=== PATIENT | male | born 1960 | race Caucasian/White ===

== ENCOUNTER 2022-08-08 10:19 | Outpatient (CLI) | payer BC, SELFPAY ==
[2022-08-09 16:48] LABS: Chloride* 106 mmol/L (96-114)
[2022-08-09 16:49] LABS: Albumin* 4.6 g/dL (3.3-5.0); Sodium* 140 mmol/L (135-149)
[2022-08-09 16:50] LABS: Potassium* 3.9 mmol/L (3.6-5.1)
[2022-08-09 16:51] LABS: Cholesterol* 188 mg/dL (90-199)
[2022-08-09 16:52] LABS: Alanine Aminotransferase* 39 U/L (4-50); Alkaline Phosphatase* 44 U/L (40-150); Aspartate Amino Transferase* 30 U/L (12-35); Bilirubin Total* 0.7 mg/dL (0.1-1.5); Blood Urea Nitrogen* 15 mg/dL (7-30); Carbon Dioxide* 25 mmol/L (20-32); Creatinine* 0.8 mg/dL (0.5-1.5); Estimated Glomerular Filt Rate 101 ml/min; Glucose* 123 mg/dL (60-115); Triglycerides* 178 mg/dL (40-149)
[2022-08-09 16:53] LABS: Calcium* 9.6 mg/dL (8.4-10.6); HDL Cholesterol* 54 mg/dL (>=40); LDL Cholesterol Calculated 98 mg/dL (<100)
[2022-08-09 17:23] LABS: PSA Screen* 3.91 ng/mL (0.10-4.00)
== END 2022-08-08 10:20 | disposition home or self-care (01) ==
PROVIDERS: PCP Family Medicine; Visit Provider Physician Assistant Medical
DX: Z00.00 Encounter for general adult medical examination without abnormal findings (principal); E78.5 Hyperlipidemia, unspecified; I10 Essential (primary) hypertension; N40.0 Benign prostatic hyperplasia without lower urinary tract symptoms; R73.03 Prediabetes; Z12.5 Encounter for screening for malignant neoplasm of prostate
CPT/HCPCS: 80053; 80061; 84153

== ENCOUNTER 2022-09-06 08:51 | Outpatient (CLI) | payer BC, SELFPAY | END 2022-09-06 08:52 | disposition home or self-care (01) | PROVIDERS: PCP Physician Assistant Medical; Visit Provider Surgery | DX: Z12.11 Encounter for screening for malignant neoplasm of colon (principal); K63.5 Polyp of colon; K64.4 Residual hemorrhoidal skin tags | CPT/HCPCS: 45385; 88305; J1200; J2250; J3010 ==

== ENCOUNTER 2023-01-10 08:05 | Outpatient (CLI) | payer BC, SELFPAY | END 2023-01-10 08:06 | disposition home or self-care (01) | LOC: NFLDREF 01-11 14:09 | PROVIDERS: PCP Physician Assistant Medical; Referring Provider Physician Assistant Medical; Visit Provider Physician Assistant Medical | DX: R30.0 Dysuria (principal); N39.0 Urinary tract infection, site not specified; N30.00 Acute cystitis without hematuria | CPT/HCPCS: 87086; 87186 ==

== ENCOUNTER 2023-02-28 09:30 | Outpatient (CLI) | payer BC, SELFPAY | END 2023-02-28 09:31 | disposition home or self-care (01) | PROVIDERS: PCP Physician Assistant Medical; Visit Provider Family Medicine | DX: Z01.818 Encounter for other preprocedural examination (principal); E04.1 Nontoxic single thyroid nodule; E78.5 Hyperlipidemia, unspecified; I10 Essential (primary) hypertension; R73.03 Prediabetes; R53.83 Other fatigue; L73.9 Follicular disorder, unspecified | CPT/HCPCS: 80053; 80061; 82043; 82570; 84443; 87070 ==

== ENCOUNTER 2023-04-25 13:27 | Outpatient (CLI) | payer BC, SELFPAY | END 2023-04-25 13:28 | disposition home or self-care (01) | LOC: FRMREF 13:27 | PROVIDERS: PCP Family Medicine; Visit Provider Family Medicine | DX: Z01.818 Encounter for other preprocedural examination (principal) | CPT/HCPCS: 80048 ==

== ENCOUNTER 2024-01-14 10:39 | Outpatient (CLI) | payer BC, SELFPAY | END 2024-01-14 10:40 | disposition home or self-care (01) | PROVIDERS: PCP Family Medicine; Visit Provider Family Medicine | DX: I10 Essential (primary) hypertension (principal); E78.5 Hyperlipidemia, unspecified; R73.03 Prediabetes; E04.1 Nontoxic single thyroid nodule; N40.0 Benign prostatic hyperplasia without lower urinary tract symptoms; R07.9 Chest pain, unspecified | CPT/HCPCS: 80053; 80061; G0103 ==

== ENCOUNTER 2024-01-21 14:35 | Outpatient (CLI) | payer BC, SELFPAY ==
--- NOTE | 2024-01-21 15:50 | P.STN_ITS ---
Stress Test Note Date Date of test: 01/21/24 Providers Primary care provider: David Olivarez Stress test physician: Leno Arana Stress Test Note Stress test ordered: Stress Echo Indication for test: Chest pain Results discussion: 64-year-old gentleman presents for the above test with the above indications after discussing the risks benefits and side effects he would like to proceed. Pretest EKG shows normal sinus rhythm with a ventricular rate of 85, blood pressure 137/84. Poor R-wave progression across the precordial leads is noted. Q-waves are noted inferiorly. ST wave abnormalities a Flattening are noted throughout the precordium, standard Luis protocol is employed over a time course of 10 minutes 2nd and achieved a metabolic: 11.5 Mets his maximum heart was 163 which is 121% of the target ST wave depression of 2 mm is noted laterally from be for through V6 and inferiorly in leads 2 and AVF. He also had chest pain, the came on approximate 9 minutes. And resolved in recovery. Impression: Positive stress stress with electrographic changes of inferior lateral. Subjec tively positive with chest pain with resolution. Follow up suggested: Patient recovered normally was pain free before discharge. Await echo images these will be read by Cardiology but clinical correlation will this will be needed. Given the high workload, and resulted chest pain with changes, high likelihood of stable angina. Patient will continue on his pre testing medications. He is given advice, if he has chest pain that does not resolve with stopping exercise, then he needs to come into the emergency room.
[2024-01-21 17:03] VITALS: BP 148/91; PULSE 109
== END 2024-01-21 14:36 | disposition home or self-care (01) ==
LOC: STRESS 14:35
PROVIDERS: PCP Family Medicine; Visit Provider Family Medicine
DX: R07.9 Chest pain, unspecified (principal); R93.1 Abnormal findings on diagnostic imaging of heart and coronary circulation
CPT/HCPCS: 93016; 93325; 93351

== ENCOUNTER 2024-06-23 11:51 | Outpatient (CLI) | payer BC, SELFPAY | END 2024-06-23 11:52 | disposition home or self-care (01) | LOC: LKVREF 11:57 | PROVIDERS: PCP Family Medicine; Visit Provider Family Medicine | DX: N40.0 Benign prostatic hyperplasia without lower urinary tract symptoms (principal); Z12.5 Encounter for screening for malignant neoplasm of prostate | CPT/HCPCS: 84153; 84154 ==

== ENCOUNTER 2024-08-27 11:33 | Outpatient (CLI) | payer BC, SELFPAY | END 2024-08-27 11:34 | disposition home or self-care (01) | LOC: LKVREF 11:34 | PROVIDERS: PCP Family Medicine; Visit Provider Family Medicine | DX: I10 Essential (primary) hypertension (principal) | CPT/HCPCS: 80048 ==

== ENCOUNTER 2025-03-08 12:02 | Outpatient (CLI) | payer BC, SELFPAY | END 2025-03-08 12:03 | disposition home or self-care (01) | LOC: LKVREF 12:03 | PROVIDERS: PCP Family Medicine; Visit Provider Family Medicine | DX: I25.10 Atherosclerotic heart disease of native coronary artery without angina pectoris (principal) | CPT/HCPCS: 80053 ==